=== PATIENT | female | born 1940 | race Caucasian/White ===

== ENCOUNTER → 2017-02-27 | Outpatient (CLI) | payer OTHER ==
[~2017-02-27] MED LIST: B-COCAP2 PO; CHOL100027 PO; CSPOPS OPB; DONE10TA12 PO; LATA0.009 OPB; MELATONIN PO; MULT-407 PO; NMN5 PO; NOTE:; OMEG10007 PO
[2017-02-27 13:34] LABS: CHOLESTEROL/HDL RATIO 4.7
== END | disposition home or self-care (01) ==
LOC: C.LABBC 12:22
PROVIDERS: ATTEND Student in an Organized Health Care Education/Training Program
DX: Z79.899 Other long term (current) drug therapy (principal)

== ENCOUNTER 2017-08-19 10:27 | Emergency (ER) | payer OTHER ==
[2017-08-19] MEDS ORDERED: SODIUM CHLORIDE 0.9% 1000ML 1,000 ML IV SCH (10:42)
[2017-08-19 10:47] VITALS: O2SAT 96
--- NOTE | 2017-08-19 10:52 | EMERGENCY ROOM VISIT NOTE ---
History Report prepared by Carina: Concepcion Multani Under the Supervision of: Dr. Esvin Denton D.O. First contact with patient: 10:42 Chief Complaint: STROKE SYMPTOMS Stated Complaint: UNABLE TO WALK, LEANING, History of Present Illness The patient is a 76 year old female who presents to the Emergency Room with complaints of constant stroke like symptoms beginning this morning. Per , when the patient woke up this morning her legs were "shaking uncontrollably". Per , when the patient got up to eat breakfast she was leaning to the left and unsteady. The patient's states the patient has never had difficulty walking like this before. The patient has had no recent changes in medications or recent travel. Per , the patient wears a diaper at baseline. He denies any changes in the patient's urine. The patient has a history of Alzheimer's. Source of History: spouse/significant other Onset: this morning Position: other (generalized) Quality: other (stroke like symptoms) Timing: constant Associated Symptoms: + weakness, No urinary symptoms Review of Systems See HPI for pertinent positives & negatives. A total of 10 systems reviewed and were otherwise negative. Past Medical & Surgical Medical Problems: (1) Anxiety (2) DEMENTIA, UNSPECIFIED, WITHOUT BEHAVIORAL DISTURBANCE (3) Intracranial meningioma (4) Neurodermatitis (5) PRIM OPEN ANGLE GLAUCOMA (6) Raynaud's disease (7) Small bowel obstruction Family History FH: syncope Seizures Social History Smoking Status: Never Smoker Alcohol Use: none Marital Status: Housing Status: lives with family Occupation Status: unemployed Current/Historical Medications Scheduled Buspirone HCl (Buspirone HCl), 0.5 MG PO TID Cholecalciferol (Vitamin D 1000 Unit), 2,000 INTER.UNIT PO QAM Docusate Sodium (Docusate Sodium), 100 MG PO QAM Donepezil Hydrochloride (Aricept), 10 MG PO QAM Dorzolamide/Timolol Oph (Cosopt Oph *), 1 DROP OPB BID Latanoprost (Xalatan 0.005% Oph Kendra), 1 DROP OPB QAM Memantine (Namenda), 10 MG PO BID Polyethylene Glycol 3350 (Miralax), 1 GM PO QAM Venlafaxine Hcl (Venlafaxine Extended Rel), 37.5 MG PO QAM Venlafaxine Hcl (Effexor Extended Rel), 75 MG PO QAM Allergies Coded Allergies: Statins (Verified Allergy, Unknown, ., 08/19/17) Nifedipine (Verified Adverse Reaction, Unknown, DIZZINESS, 08/19/17) Physical Exam Vital Signs Date Time Temp Pulse Resp B/P (MAP) Pulse Ox O2 Delivery O2 Flow Rate FiO2 08/19/17 13:30 71 20 137/91 95 Room Air 08/19/17 13:00 70 15 118/92 96 Room Air 08/19/17 12:35 72 18 130/88 94 Room Air 08/19/17 12:31 70 18 130/88 95 Room Air 08/19/17 12:00 66 13 140/93 97 Room Air 08/19/17 11:31 67 18 131/92 96 Room Air 08/19/17 11:30 66 20 141/84 96 Room Air 08/19/17 11:00 72 19 99 Room Air 08/19/17 10:53 37.4 08/19/17 10:47 96 Room Air 08/19/17 10:44 72 08/19/17 10:35 78 20 159/87 98 Room Air Physical Exam GENERAL: Patient is listless, not answering questions, does not follow commands. EYES: The conjunctivae are clear. The pupils are round and reactive. EARS, NOSE, MOUTH AND THROAT: The nose is without any evidence of any deformity. Mucous membranes are dry tongue is midline NECK: The neck is nontender and supple. RESPIRATORY: Normal respiratory effort is noted there is no evidence of wheezing rhonchi or rales CARDIOVASCULAR: Regular rate and rhythm noted there no murmurs rubs or gallops normal S1 normal S2 GASTROINTESTINAL: The abdomen is soft. Bowel sounds are present in all quadrants. Abdomen is nontender MUSCULOSKELETAL/EXTREMITIES: There is no evidence of gross deformity full range of motion is noted in the hips and shoulders SKIN: There is no obvious evidence of any rash. There are no petechiae, pallor or cyanosis noted. NEUROLOGIC: According to significant other, the patient is answering questions appropriately but in [place]ian, strength is symmetric. Medical Decision & Procedures ER Provider Diagnostic Interpretation: Radiology results as stated below per my review and radiologist interpretation: CHEST ONE VIEW PORTABLE FINDINGS: The bones soft tissues and hemidiaphragms are normal. The cardiomediastinal silhouette is normal. The lungs are clear. The pulmonary vasculature is normal. IMPRESSION: Negative chest. The above report was generated using voice recognition software. It may contain grammatical, syntax or spelling errors. Electronically signed by: Venkata Chandler M.D. HEAD WITHOUT CONTRAST (CT) Findings: The paranasal sinuses and mastoid air cells are clear. The calvarium and skull base are intact. The ventricles and sulci are within normal limits. There is no mass, hematoma, midline shift, or acute infarct. Age-related atrophy. Impression: No acute intracranial abnormality. Age-related atrophy. The above report was generated using voice recognition software. It may contain grammatical, syntax or spelling errors. Electronically signed by: Venkata Chandler M.D. Laboratory Results 08/19/17 10:40 Red Blood Count 4.02, Mean Corpuscular Volume 97.8, Mean Corpuscular Hemoglobin 33.1, Mean Corpuscular Hemoglobin Concent 33.8, Mean Platelet Volume 9.7, Neutrophils (%) (Auto) 76.6, Lymphocytes (%) (Auto) 12.5, Monocytes (%) (Auto) 10.3, Eosinophils (%) (Auto) 0.1, Basophils (%) (Auto) 0.1, Neutrophils # (Auto ) 5.94, Lymphocytes # (Auto) 0.97, Monocytes # (Auto) 0.80, Eosinophils # (Auto ) 0.01, Basophils # (Auto) 0.01 08/19/17 10:40 Test 08/19/17 10:40 08/19/17 10:45 08/19/17 11:45 White Blood Count 7.76 K/uL (4.8-10.8) Red Blood Count 4.02 M/uL (4.2-5.4) Hemoglobin 13.3 g/dL (12.0-16.0) Hematocrit 39.3 % (37-47) Mean Corpuscular Volume 97.8 fL (80-100) Mean Corpuscular Hemoglobin 33.1 pg (25-34) Mean Corpuscular Hemoglobin Concent 33.8 g/dl (32-36) Platelet Count 313 K/uL (130-400) Mean Platelet Volume 9.7 fL (7.4-10.4) Neutrophils (%) (Auto) 76.6 % Lymphocytes (%) (Auto) 12.5 % Monocytes (%) (Auto) 10.3 % Eosinophils (%) (Auto) 0.1 % Basophils (%) (Auto) 0.1 % Neutrophils # (Auto) 5.94 K/uL (1.4-6.5) Lymphocytes # (Auto) 0.97 K/uL (1.2-3.4) Monocytes # (Auto) 0.80 K/uL (0.11-0.59) Eosinophils # (Auto) 0.01 K/uL (0-0.5) Basophils # (Auto) 0.01 K/uL (0-0.2) RDW Standard Deviation 47.5 fL (36.4-46.3) RDW Coefficient of Variation 13.3 % (11.5-14.5) Immature Granulocyte % (Auto) 0.4 % Immature Granulocyte # (Auto) 0.03 K/uL (0.00-0.02) Prothrombin Time 10.5 SECONDS (9.0-12.0) Prothromb Time International Ratio 1.0 (0.9-1.1) Activated Partial Thromboplast Time 24.7 SECONDS (21.0-31.0) Partial Thromboplastin Ratio 1.0 Anion Gap 8.0 mmol/L (3-11) Estimated GFR () 78.8 Estimated GFR (Non- 68.0 BUN/Creatinine Ratio 15.0 (10-20) Calcium Level 8.6 mg/dl (8.5-10.1) Magnesium Level 1.9 mg/dl (1.8-2.4) Total Bilirubin 0.5 mg/dl (0.2-1) Direct Bilirubin < 0.1 mg/dl (0-0.2) Aspartate Amino Transf (AST/SGOT) 25 U/L (15-37) Alanine Aminotransferase (ALT/SGPT) 34 U/L (12-78) Alkaline Phosphatase 108 U/L (45-117) Total Creatine Kinase 118 U/L (26-192) Creatine Kinase MB 1.2 ng/ml (0.5-3.6) Creatine Kinase MB Ratio 1.0 (0-3.0) Troponin I < 0.015 ng/ml (0-0.045) Total Protein 8.0 gm/dl (6.4-8.2) Albumin 3.6 gm/dl (3.4-5.0) Bedside Glucose 206 mg/dl (70-90) Urine Color YELLOW Urine Appearance CLEAR (CLEAR) Urine pH 8.5 (4.5-7.5) Urine Specific [place] 1.010 (1.000-1.030) Urine Protein NEG (NEG) Urine Glucose (UA) NEG (NEG) Urine Ketones NEG (NEG) Urine Occult Blood NEG (NEG) Urine Nitrite NEG (NEG) Urine Bilirubin NEG (NEG) Urine Urobilinogen NEG (NEG) Urine Leukocyte Esterase NEG (NEG) Laboratory results per my review. Medications Administered Medications (Trade) Dose Ordered Sig/Makenzie Route Start Time Stop Time Status Last Admin Dose Admin Sodium Chloride 1,000 ml @ 50 mls/hr Q20H IV 08/19/17 10:42 08/19/17 15:32 DC 08/19/17 12:32 50 MLS/HR ECG Indication: weakness Rate (beats per minute): 65 Rhythm: normal sinus Findings: no ectopy, other (no acute ST segments ) Comparison ECG Date: 02/08/14 Change: no significant change Change: EKG interpreted by me. ED Course 1041: The patient was evaluated in room B2. A complete history and physical examination were performed. 1042: Ordered NSS 1,000 ml @ 50 mls/hr IV 1326: I update the patient's on her test results. He made me aware the patient is on hospice 1415: The patient completed a walking test. Per , the patient is acting at her baseline. 1432: Upon reevaluation, the patient is resting comfortably. I discussed the results and treatment plan with the patient's . He verbalized agreement of the treatment plan. The patient was discharged home. Medical Decision Differential diagnosis: Etiologies such as metabolic, infection, hypo/hyperglycemia, electrolyte abnormalities, cardiac sources, intracerebral event, toxicologic, neurologic, as well as others were entertained. Nursing notes reviewed. Additional history is obtained from the patient's significant other. The patient is a 76-year-old female who presented to the emergency department with her for evaluation of altered mental status and weakness. The patient's significant other states that she had significant difficulty ambulating. She had no pain but her mental status is somewhat confused at baseline and is difficult to ascertain exactly what happened. I discussed the patient's laboratory and radiographic studies with the patient's significant other. The patient was treated with IV fluids in the emergency department. At this time no definite cause for the patient's symptoms could be found but she appeared to be back to her baseline on reevaluation. The patient was encouraged to follow-up with her primary care physician as soon as possible. She was also encouraged to continue all medications as prescribed. Medication Reconcilliation Current Medication List: was personally reviewed by me Blood Pressure Screening Patient's blood pressure: Elevated blood pressure Blood pressure disposition: Elevated BP felt to be situational Impression Primary Impression: Weakness Additional Impression: TIA (transient ischemic attack) Scribe Attestation The scribe's documentation has been prepared under my direction and personally reviewed by me in its entirety. I confirm that the note above accurately reflects all work, treatment, procedures, and medical decision making performed by me. Departure Information Dispostion Home / Self-Care Referrals Dwain Patel M.D. (PCP) Forms HOME CARE DOCUMENTATION FORM, IMPORTANT VISIT INFORMATION Patient Instructions ED Weakness SAMANTHA, [facility], TIA Additional Instructions Continue all medications as prescribed. Follow-up with your family doctor for reevaluation. Return to the emergency department immediately if symptoms change worsen or the need arises. Problem Qualifiers Additional Impression: TIA (transient ischemic attack) Transient cerebral ischemia type: unspecified Qualified Codes: G45.9 - Transient cerebral ischemic attack, unspecified
[2017-08-19 10:53] VITALS: TEMP 37.4
[2017-08-19 11:03] LABS: BASO % 0.1 %; BASO ABS # 0.01 K/uL (0-0.2); EOS % 0.1 %; EOS ABS # 0.01 K/uL (0-0.5); HEMATOCRIT 39.3 % (37-47); HEMOGLOBIN 13.3 g/dL (12.0-16.0); IG# 0.03 K/uL (0.00-0.02); LYMPH % 12.5 %; LYMPH ABS # 0.97 K/uL (1.2-3.4); MEAN CELL VOLUME 97.8 fL (80-100); MEAN CORPUSCULAR HEMOGLOBIN 33.1 pg (25-34); MEAN CORPUSCULAR HGB CONC 33.8 g/dl (32-36); MEAN PLATELET VOLUME 9.7 fL (7.4-10.4); MONO % 10.3 %; NEUT % 76.6 %; NEUT ABS # 5.94 K/uL (1.4-6.5); PLATELET COUNT 313 K/uL (130-400); RED CELL DISTRIBUTION WIDTH CV 13.3 % (11.5-14.5); RED CELL DISTRIBUTION WIDTH SD 47.5 fL (36.4-46.3); WHITE BLOOD COUNT 7.76 K/uL (4.8-10.8)
[2017-08-19 11:16] LABS: PTT PATIENT 24.7 SECONDS (21.0-31.0)
--- NOTE | 2017-08-19 11:19 | DIAGNOSTIC IMAGING REPORT ---
HEAD WITHOUT CONTRAST (CT) CT DOSE: 788.63 mGycm HISTORY: Mental status change Stroke TECHNIQUE: Multiaxial CT images of the head were performed without the use of intravenous contrast. A dose lowering technique was utilized adhering to the principles of ALARA. Comparison: 01/02/2014 Findings: The paranasal sinuses and mastoid air cells are clear. The calvarium and skull base are intact. The ventricles and sulci are within normal limits. There is no mass, hematoma, midline shift, or acute infarct. Age-related atrophy. Impression: No acute intracranial abnormality. Age-related atrophy. The above report was generated using voice recognition software. It may contain grammatical, syntax or spelling errors. Electronically signed by: Venkata Chandler M.D. 08/19/2017 11:18 AM Dictated Date/Time: 08/19/2017 11:16 AM
--- NOTE | 2017-08-19 11:20 | DIAGNOSTIC IMAGING REPORT ---
CHEST ONE VIEW PORTABLE CLINICAL HISTORY: Stroke mental status change COMPARISON STUDY: 02/08/2014 FINDINGS: The bones soft tissues and hemidiaphragms are normal. The cardiomediastinal silhouette is normal. The lungs are clear. The pulmonary vasculature is normal. IMPRESSION: Negative chest. The above report was generated using voice recognition software. It may contain grammatical, syntax or spelling errors. Electronically signed by: Venkata Chandler M.D. 08/19/2017 11:19 AM Dictated Date/Time: 08/19/2017 11:18 AM
[2017-08-19 11:23] LABS: ALBUMIN 3.6 gm/dl (3.4-5.0); BLOOD UREA NITROGEN 13 mg/dl (7-18); CALCIUM 8.6 mg/dl (8.5-10.1); CARBON DIOXIDE 26 mmol/L (21-32); CREATININE 0.84 mg/dl (0.60-1.20); GLUCOSE 158 mg/dl (70-99); POTASSIUM 3.3 mmol/L (3.5-5.1); SODIUM 138 mmol/L (136-145)
[2017-08-19 11:28] LABS: ALKALINE PHOSPHATASE 108 U/L (45-117); ALT/SGPT 34 U/L (12-78); AST/SGOT 25 U/L (15-37); CKMB 1.2 ng/ml (0.5-3.6)
[2017-08-19] MEDS ORDERED: BSP/5 PO (12:03)
[2017-08-19] MEDS ORDERED: POLY335019 PO (12:03)
[2017-08-19] MEDS ORDERED: CLC100 PO (12:03)
[2017-08-19] MEDS ORDERED: EFFSR75 PO (12:03)
[2017-08-19] MEDS ORDERED: VENL37.593 PO (12:03)
[2017-08-19 13:30] VITALS: BP 137/91; PULSE 71; O2SAT 95
== END 2017-08-19 14:30 | disposition home or self-care (01) ==
LOC: C.EDB 10:28
DX: R53.1 Weakness (principal); G45.9 Transient cerebral ischemic attack, unspecified; F41.9 Anxiety disorder, unspecified; F03.90 Unspecified dementia, unspecified severity, without behavioral disturbance, psychotic disturbance, mood disturbance, and anxiety; D32.9 Benign neoplasm of meninges, unspecified; I73.00 Raynaud's syndrome without gangrene; Z82.0 Family history of epilepsy and other diseases of the nervous system